=== PATIENT | male | born 1985 | race Two or more races ===

== ENCOUNTER 2020-05-20 14:27 | Emergency (ER) | payer OTHER ==
[~2020-05-20 14:27] MED LIST: ATIVAN0.5 MG PO; BROMFED DM COU473 ML PO; CYCLOBENZAPRINE10 MG PO; FLONASE ALLER15.8 ML; IBUPROFEN800 MG PO; TESSALON PERLE100 MG PO; ZYRTEC10 M3 PO
[2020-05-20 16:19] LABS: CORONAVIRUS 2019 SARS-COV-2 NEGATIVE (NEGATIVE); INFLUENZA A NAA NEGATIVE (NEGATIVE)
[2020-05-20] MEDS ORDERED: MEDROL 4MG DOSEP4 MG PO (16:36)
[2020-05-20] MEDS ORDERED: CYCLOBENZAPRINE10 MG PO (16:36)
== END 2020-05-20 16:50 | disposition home or self-care (01) ==
LOC: FER 14:27
PROVIDERS: Nurse Practitioner Family
DX: B34.9 Viral infection, unspecified (principal); T14.8XXA Other injury of unspecified body region, initial encounter; X58.XXXA Exposure to other specified factors, initial encounter; Z20.822 Contact with and (suspected) exposure to COVID-19
CPT/HCPCS: 99284; J1100; U0002

== ENCOUNTER 2020-07-28 15:30 | Emergency (ER) | payer OTHER ==
[~2020-07-28 15:30] MED LIST changes: +MEDROL 4MG DOSEP4 MG PO
[2020-07-28 17:13] LABS: BASOPHIL 0.5 % (0-2); EOSINOPHIL 0.2 % (0-5); HCT 47.4 % (42.0-52.0); HGB 16.4 g/dl (13.2-18.0); LYMPHOCYTE 10.6 % (15-48); MCH 30.1 pg (25.0-31.0); MCHC 34.6 g/dL (32.0-36.0); MONOCYTE 5.3 % (0-12); MPV 10.7 fL (6.0-9.5); NEUTROPHIL 82.8 % (41-80); NRBC 0; PLT 248 K/uL (150-400); RBC 5.45 M/uL (4.70-6.00); RDW 12.5 % (11.5-14.0); WBC 10.3 K/uL (4.0-10.5)
[2020-07-28 17:29] LABS: BILIRUBIN NEGATIVE (NEGATIVE); BLOOD NEGATIVE Ery/uL (NEGATIVE); CLARITY CLEAR (CLEAR); COLOR YELLOW (YELLOW); GLUCOSE (U) NORMAL (NORMAL); LEUKOCYTES NEGATIVE Leu/uL (NEGATIVE); NITRITE NEGATIVE (NEGATIVE); PROTEIN NEGATIVE (NEGATIVE); UROBILINOGEN 0.2 mg/dL (0.2-1.0)
[2020-07-28 17:32] LABS: AMPHETAMINES NEGATIVE (NEGATIVE); BARBITURATES NEGATIVE (NEGATIVE); ECSTASY (MDMA) NEGATIVE (NEGATIVE); MARIJUANA (THC) NEGATIVE (NEGATIVE); METHADONE NEGATIVE (NEGATIVE); OPIATES NEGATIVE (NEGATIVE); OXYCODONE NEGATIVE (NEGATIVE)
[2020-07-28 17:36] LABS: ALBUMIN 4.6 g/dL (3.4-5.0); BILIRUBIN - TOTAL 0.4 mg/dL (0.2-1.0); BUN/CREAT RATIO (CALC) 16.9 RATIO; CREATININE 0.59 mg/dL (0.67-1.17); GLOBULIN (CALCULATION) 3.5 g/dL; POTASSIUM 3.8 mmol/L (3.5-5.1); TOTAL PROTEIN 8.1 g/dL (6.4-8.2)
[2020-07-28 18:03] LABS: CORONAVIRUS 2019 SARS-COV-2 NEGATIVE (NEGATIVE); INFLUENZA A NAA NEGATIVE (NEGATIVE)
== END 2020-07-28 19:00 | disposition home or self-care (01) ==
LOC: FER 15:30
PROVIDERS: Nurse Practitioner Family
DX: F41.1 Generalized anxiety disorder (principal); F15.90 Other stimulant use, unspecified, uncomplicated; Z87.891 Personal history of nicotine dependence; Z20.822 Contact with and (suspected) exposure to COVID-19
CPT/HCPCS: 36415; 80053; 80305; 81003; 85025; 93005; J7030; U0002